=== PATIENT | female | born 1950 | race Caucasian/White ===

== ENCOUNTER → 2024-04-11 | Outpatient (CLI) | payer MEDICARE, OTHER, SELFPAY ==
--- NOTE | 2024-04-11 11:06 | RAD_ITS ---
STUDY: X-RAY - LEFT WRIST REASON FOR EXAM: Female, 73 years old. Pain following a fall. TECHNIQUE: 3 view(s) of the wrist were obtained. COMPARISON: None. FINDINGS: Normal visualized distal radius and ulna. Normal radiocarpal articulation. Normal distal radioulnar articulation. Normal carpal bones. Normal carpal articulations. Normal carpometacarpal articulation of the thumb. Normal second through fifth carpometacarpal articulations. Normal visualized metacarpal bones. The soft tissue structures are unremarkable. RAD/Wrist min 3 Views IMPRESSION: Normal x-ray examination of the wrist. Electronically Signed: José Payne MD at 11:59 EST ,
--- NOTE | 2024-04-11 11:06 | RAD_ITS ---
STUDY: X-RAY - LEFT ELBOW REASON FOR EXAM: Female, 73 years old. Pain following a fall. TECHNIQUE: 4 view(s) of the elbow. COMPARISON: None. FINDINGS: Nondisplaced radial neck fracture. Normal radiocapitellar and ulnotrochlear articulations. Soft tissue swelling. RAD/Elbow min 3 Views IMPRESSION: Nondisplaced radial neck fracture and the soft tissue swelling. Electronically Signed: José Payne MD at 12:02 EST ,
== END | disposition home or self-care (01) ==
LOC: MTRAD 11:05
PROVIDERS: PCP Family Medicine; Referring Provider Physician Assistant; Visit Provider Physician Assistant
DX: M25.532 Pain in left wrist (principal); M25.522 Pain in left elbow; W19.XXXA Unspecified fall, initial encounter
CPT/HCPCS: 73080; 73110

== ENCOUNTER → 2024-05-08 | Outpatient (CLI) | payer MEDICARE, OTHER, SELFPAY ==
[2024-05-08 10:02] LABS: Absolute Lymphocyte Count 1.69 X10^3/uL (0.83-4.51); Absolute Neutrophil Count 2.5 X10^3/uL (2.0-7.7); Basophil# 0.03 X10^3/uL; Basophil% 0.6 % (0-1); Eosinophil# 0.19 X10^3/uL; Eosinophils% 3.9 % (0-5); Hemoglobin 13.2 g/dL (12.0-15.0); Lymphocyte # 1.69 X10^3/ul (0.83-4.51); Lymphocyte % 34.7 % (19-41); Mean Corpuscular Hgb 32.5 pg (27.0-32.0); Mean Corpuscular Volume 98.5 fL (81-99); Mean Platelet Vol. 11.2 fl (6.2-12.0); Monocyte# 0.43 X10^3/uL; Monocyte% 8.8 % (0-10); NRBC Flagged by Analyzer 0 % (0-5); Neutrophil # 2.52 X10^3/uL (2.7-7.7); Neutrophil % 51.8 % (47-70); Platelet Count 230 K/mm3 (150-450); RBC Distribution Width CV 12.8 % (11.6-14.6); RBC Distribution Width SD 46.8 fl (35.1-43.9); Red Blood Count 4.06 M/mm3 (4.2-5.4); White Blood Count 4.9 K/mm3 (4.4-11.0)
[2024-05-08 11:07] LABS: ALB/GLOB Ratio 1.1 RATIO (0.9-2.4); AST(SGOT) 17 U/L (15-37); Alanine Aminotransfer ALT/SGPT 20 U/L (13-56); Albumin, Serum 3.8 g/dL (3.2-5.0); Alkaline Phosphatase 89 U/L (45-117); Anion Gap 5 (5-15); BUN 16 mg/dL (7-18); BUN/Creat Ratio 24.8 RATIO (10-20); Calcium,Total 9.9 mg/dL (8.5-10.1); Chloride 105 mmol/L (98-107); Cholesterol 256 mg/dL (200); Creatinine, Serum 0.64 mg/dL (0.55-1.02); EST Glomerular Filtration Rate 96 mL/min (>60); Est Glom Filt Rate - Afr Amer 116 mL/min (>60); Globulin 3.6 g/dL (2.2-4.2); Glucose 112 mg/dL (74-106); High Density Lipoprotein 107 mg/dL; Potassium 3.8 mmol/L (3.5-5.1); Protein, Total 7.4 g/dL (6.4-8.2); Sodium Level 140 mmol/L (136-145); Triglycerides 115 mg/dL; Very Low Density Lipoprotein 23 mg/dL (5-40)
== END | disposition home or self-care (01) ==
LOC: MFPLAB 08:30
PROVIDERS: PCP Family Medicine; Referring Provider Family Medicine; Visit Provider Family Medicine
DX: K51.90 Ulcerative colitis, unspecified, without complications (principal); E78.5 Hyperlipidemia, unspecified; R53.83 Other fatigue
CPT/HCPCS: 36415; 80053; 80061; 82306; 83735; 84443; 85025

== ENCOUNTER → 2024-05-15 | Outpatient (CLI) | payer MEDICARE, OTHER, SELFPAY ==
[2024-05-15 17:56] LABS: Hemoglobin A1c 5.6 % (3.8-5.6)
== END | disposition home or self-care (01) ==
LOC: MFPLAB 14:33
PROVIDERS: PCP Family Medicine; Referring Provider Family Medicine; Visit Provider Family Medicine
DX: R73.09 Other abnormal glucose (principal)
CPT/HCPCS: 36415; 83036

== ENCOUNTER 2024-05-22 09:00 | Outpatient (RCR) | payer MEDICARE, OTHER, SELFPAY ==
--- NOTE | 2024-05-03 15:21 | HP.PTEVAL_ITS ---
Patient's Visit Information Visit Information Visit Information: GRACE LANG is a 73 year old F referred to Physical Therapy by Dr. Lawrence Brown MD with a diagnosis of L non displaced Dx. Date of Evaluation: 05/03/24 Physical Therapist: QUIRINO Banegas Visit Plan Frequency: 1-2x /Week Duration: 4 Weeks Plan: No strengthening till 6 weeks (05-22-24) Pt was given HEP today (AROM L forearm supination, pronation, elbow flexion and extension) for HEP and will return at her 6 week miya to learn some strengthening exercises. Pt was in instructed to not push ROM into pain and use pain as her guide Subjective Subjective: She fell because her dog pulled her down on 04-09-24. Her Dr is 60# and pulled down on her L side. She could not put pressure on it and it was sore but she did not go for 2 days and then went to Ortho. She wore a sling for awhile. It will be [address] said that her fx is healing well. She has no other restrictions. She still can not push up off the seat or if she supinates, and sleeping with her elbow in flexion up by her shoulder on her stomach. Her R thumb his also bothering her and she will talk to her new PCP zeynep ORTIZ) and because she just moved her 2 months ago. She also has tight in her forearm. Pain L forearm: Pain Intensity (Out of 10): 1 Comment: Can tell its there Objective Objective: R handed R 40# and L 15# R elbow extension 0 and L elbow extension -9 degrees from full extension R elbow flexion 155 and L 142 degrees R wrist supination 98 degrees and L 47 R wrist pronation 95 and L 95 with increase discomfort Strength not tested due to no strengthening restriction until 6 weeks which is 05-22-24 Balance/Special Test Scores Quick DASH Score: 29.5450 Goals Goal 1:: I HEP Goal Time Frame: 6-8 Weeks Goal 2:: Be able to push self up off the bed Goal Time Frame: 6-8 Weeks Goal 3:: Full Wrist and elbow flexion compared to the R (at the time of the eval: R elbow extension 0 and L elbow extension -9 degrees from full extension R elbow flexion 155 and L 142 degrees R wrist supination 98 degrees and L 47 R wrist pronation 95 and L 95 with increase discomfort) Goal Time Frame: 6-8 Weeks Goal 4:: Improve L manager manufacturing strength. At the time of the eval: R 40# and L 15# Goal Time Frame: 6-8 Weeks Rehabilitation Potential Rehabilitation Potential: Good Anticipated Interventions Patient/Client Instruction: Educate patient on: Condition and Plan of Care For the Purpose of:: To decrease pain, To increase ROM, To improve nutrient delivery to tissue, To improve muscle performance and motor function, To improve ability to perform ADL's, To increase tolerance to activity/condition/position, To improve performance and independence with ADL's, To decrease level of supervision to perform tasks, To improve ability of physical actions for home/community/work/leisure, To improve health of tissue, To decrease soft tissue restriction and To increase flexibility/ROM Therapeutic Exercise to Include: Strength training, Postural training, Flexibilty training, Passive ROM, Active ROM and Scapular Strength/Stabilization For the Purpose of:: To decrease pain, To increase ROM, To improve muscle performance and motor function, To improve ability to perform ADL's, To increase tolerance to activity/condition/position, To improve performance and independence with ADL's, To decrease level of supervision to perform tasks, To improve ability of physical actions for home/community/work/leisure, To improve health of tissue, To decrease soft tissue restriction and To increase flexibility/ROM Manual Therapy Techniques to Include: Passive ROM For the Purpose of:: To increase ROM Text: Thank you for the opportunity to evaluate your patient. For Medicare and Medicare HMO plans, please review the plan of care and approve it. It will need to be FAXED BACK to us at [phone] for Medicare purposes. For Medicare only, by signing this I certify the plan of care. Please let me know if there are questions or concerns regarding this plan of care. Physician Signature: Date:
--- NOTE | 2024-05-22 09:27 | HP.PTDCSUM ---
Discharge Summary D/C summary: It has been my pleasure to treat GRACE LANG referred by Dr. Lawrence Brown MD, with the diagnosis of L non displaced Dx for a total of 2 visit(s). Discharge Date: 05/22/24 Please see the following information for a summary of their discharge status. Subjective Subjective: Pt has no pain unless she has to use that arm to push out of a chair. She has pretty much full use. She can feel the elbow sometimes but not too bad. Pain L forearm: Pain Intensity (Out of 10): 1 Overall Improvement % Improvement: 90 Objective Objective/Function: R elbow flexion 155 and L 151 L elbow full extension R wrist supination 98 degrees and L 85 R wrist pronation 95 and L 95 with increase discomfort) R 40# and L 30# Goals Goal 1:: I HEP Goal Progress: Goal Met Goal 2:: Be able to push self up off the bed Goal Progress: Progressing Goal 3:: Full Wrist and elbow flexion compared to the R (at the time of the eval: R elbow extension 0 and L elbow extension -9 degrees from full extension R elbow flexion 155 and L 142 degrees R wrist supination 98 degrees and L 47 R wrist pronation 95 and L 95 with increase discomfort) Goal 4:: Improve L operations vice president strength. At the time of the eval: R 40# and L 15# Plan Plan: No strengthening till 6 weeks (05-22-24) Pt was given HEP today (AROM L forearm supination, pronation, elbow flexion and extension) for HEP and will return at her 6 week miya to learn some strengthening exercises. Pt was in instructed to not push ROM into pain and use pain as her guide D/C Information Discharge Comments: DC PT d/c sentence: If there are questions or concerns regarding this patient's physical therapy, please feel free to call me at [phone]. Thank you for the referral of this patient. Sincerely, Nicole Montanez, MPT Balance/Gait/Functional tests Balance/Special Test Scores Quick DASH Score: 4.5450 Improvement % Improvement: 90
== END 2024-05-22 19:00 | disposition home or self-care (01) ==
LOC: PT 09:00
PROVIDERS: PCP Family Medicine; Referring Provider Orthopaedic Surgery Sports Medicine; Visit Provider Orthopaedic Surgery Sports Medicine
DX: S52.135D Nondisplaced fracture of neck of left radius, subsequent encounter for closed fracture with routine healing (principal)
CPT/HCPCS: 97161; 97530

== ENCOUNTER → 2024-06-06 | Outpatient (CLI) | payer MEDICARE, OTHER, SELFPAY ==
--- NOTE | 2024-06-06 12:33 | CT_ITS ---
STUDY: CT ABDOMEN AND PELVIS WITH CONTRAST REASON FOR EXAM: Female, 73 years old. Ulcerative Colitis, Alfreda, appy, tubal RADIATION DOSAGE (If Supplied By Facility): CTDIvol = ( 9.6 ) mGy, DLP = ( 429.16 ) mGycm TECHNIQUE: Oral and amp; IV Readi-CAT and amp; 100mL Isovue-300 was administered. Transaxial images were obtained from the dome of the diaphragm to the symphysis pubis. Multiplanar coronal and sagittal images were reformatted. The protocol utilizes one or more of the following dose reduction techniques: automated exposure control, adjustment of mA and/or kV according to patient size,and/or use of iterative reconstruction technique. COMPARISON: No relevant prior comparison study available FINDINGS: The visualized lung bases are unremarkable. The visualized portions of the heart are within normal limits. Normal liver. Status post cholecystectomy. Normal spleen. Normal pancreas. Normal bilateral adrenal glands. Right renal cyst appears to be simple, the largest measures about 3.5 cm in the lower pole and for which no further follow-up exam is needed. 2 cm nonobstructing stone in the right kidney extending to the right renal pelvis. Small calcifications in the upper pole of the left kidney. No evidence of hydronephrosis. Normal visualized stomach. Normal in caliber small bowel loops. Reticulosis of the sigmoid colon. No evidence of acute diverticulitis. There is non-visualization of the appendix. There is atherosclerotic calcification of the abdominal aorta with elongation and tortuosity, but without a demonstrated aneurysm. No retroperitoneal adenopathy. Normal urinary bladder. No pelvic mass. Normal abdominal wall. Degenerative changes of the spine. CT/Abdomen/Pelvis WITH Contrast IMPRESSION: 1. Diverticulosis without evidence of acute diverticulitis. 2. Nonobstructing stones in both kidneys larger on the right side without evidence of hydronephrosis. 3. No focal acute inflammatory process. Electronically Signed: Gerson Noel MD at 10:42 EST ,
== END | disposition home or self-care (01) ==
LOC: CT 12:32
PROVIDERS: PCP Family Medicine; Referring Provider Internal Medicine Gastroenterology; Visit Provider Internal Medicine Gastroenterology
DX: K51.90 Ulcerative colitis, unspecified, without complications (principal)
CPT/HCPCS: 74177; Q9967

== ENCOUNTER → 2025-02-08 | Outpatient (CLI) | payer MEDICARE, OTHER, SELFPAY ==
[2025-02-08 17:42] LABS: Hematocrit 37.2 % (37-47); Hemoglobin 12.6 g/dL (12.0-15.0); Immature Granulocytes Count 0.010 X10^3/uL (0.0-0.0); Mean Corp Hgb Conc 33.9 g/dL (32-36); Mean Corpuscular Volume 98.7 fL (81-99); Mean Platelet Vol. 11.1 fl (6.2-12.0); NRBC Flagged by Analyzer 0 % (0-5); Platelet Count 224 K/mm3 (150-450); RBC Distribution Width CV 13.2 % (11.6-14.6); RBC Distribution Width SD 47.6 fl (35.1-43.9); Red Blood Count 3.77 M/mm3 (4.2-5.4); White Blood Count 5.5 K/mm3 (4.4-11.0)
[2025-02-08 18:29] LABS: AST(SGOT) 26 U/L (<=31); Alanine Aminotransfer ALT/SGPT 17 U/L (<=34); Albumin, Serum 4.3 g/dL (3.4-4.8); Alkaline Phosphatase 77 U/L (35-104); Anion Gap 12 (5-15); BUN 14 mg/dL (4-19); BUN/Creat Ratio 23.0 RATIO (10-20); Calcium,Total 10.1 mg/dL (7.6-11.0); Carbon Dioxide 26.0 mmol/L (21.0-32.0); Chloride 101 mmol/L (98-108); Cholesterol 252 mg/dL (<=200); Globulin 2.8 g/dL (2.2-4.2); Glucose 83 mg/dL (70-99); Low Density Lipoprotein Calc. 129 mg/dL; Potassium 4.2 mmol/L (3.3-5.1); Triglycerides 137 mg/dL; Very Low Density Lipoprotein 27 mg/dL (5-40); Vitamin D,25 Hydroxy 56.8 ng/mL (30-100); cholesterol:hdl ratio screen 2.64
== END | disposition home or self-care (01) ==
LOC: MFPLAB 11:45
PROVIDERS: PCP Family Medicine; Visit Provider Family Medicine
DX: G62.9 Polyneuropathy, unspecified (principal); Z13.1 Encounter for screening for diabetes mellitus; E78.5 Hyperlipidemia, unspecified
CPT/HCPCS: 36415; 80053; 80061; 82306; 84443; 85025

== ENCOUNTER → 2025-03-15 | Outpatient (CLI) | payer MEDICARE, OTHER, SELFPAY ==
--- NOTE | 2025-03-15 10:00 | BD_ITS ---
PROCEDURE: DEXA BONE DENSITY STUDY 03/15/2025 REASON FOR EXAM: HISTORY OF OSTEOPOROSIS F, age 74 y/o . Postmenopausal. TECHNIQUE: Procedure Code: BDDBD Modality: DX Procedure: DEXA BONE DENSITY STUDY COMPARISON: None FINDINGS: BMD and T-SCORES Lumbar spine: 0.874 g/cm2, T-score -1.6 Levels: L1 through L4 Left femoral neck: 0.714 g/cm2, T-score -1.2 Femoral neck comparison data not recommended for monitoring change. Left total hip: 0.823 g/cm2, T-score -1.0 Right femoral neck: 0.669 g/cm2, T-score -1.6 Femoral neck comparison data not recommended for monitoring change. Right total hip: 0.815 g/cm2, T-score -1.0 The World Health Organization has defined the following categories based on bone density: Normal bone density: T-score equal to or greater than -1.0 Osteopenia: T-score between -1.0 and -2.5 Osteoporosis: T-score equal to or less than -2.5 FRAX (or Comparable) Fracture Risk Assessment: 10 Year Probability of Fracture: Major Osteoporotic Fracture: 50% Hip Fracture: 3.3% (Note: FRAX is not to be reported in setting of normal range bone density, osteoporosis on DEXA, known history of osteoporosis, prior osteoporotic hip or vertebral fracture, or for any patient undergoing pharmacological treatment for bone loss.) The National Osteoporosis Foundation (NOF) recommends pharmacological treatment for patients with a FRAX 10-year risk of 3% or higher for a hip fracture, or 20% or higher for a major osteoporotic fracture, to prevent osteoporosis and reduce fracture risk. The patient does meet the pharmacological treatment recommendations for prevention of osteoporosis. BD/Dexa Bone Density Study IMPRESSION: OSTEOPENIA. Recommend follow-up as clinically warranted. Reading Location: [facility]
--- NOTE | 2025-03-15 10:45 | BI_ITS ---
EXAM: SCRN MAMM (CAD)W/EDMAR BILAT DATE: 03/15/2025 CLINICAL HISTORY: F, Age 74 y/o , BREAST CANCER SCREENING Sister with breast cancer. TECHNIQUE: Procedure Code: [id number] Modality: MG Procedure: SCRN MAMM (CAD)W/EDMAR BILAT COMPARISON: Prior study not available for comparison at this time. FINDINGS: TISSUE DENSITY: The breasts are heterogeneously dense, which may obscure small masses. Bilateral Breast Mammographic Findings: No significant masses, calcifications or other abnormalities are identified. BI/SCRN MAMM (CAD)W/EDMAR BILAT IMPRESSION: Unremarkable bilateral screening mammogram. OVERALL FINAL ASSESSMENT BI-RADS 1: NEGATIVE. RECOMMENDATION: Routine annual follow-up in 1 Year Additional Recommendation none A letter with findings and recommendations will be mailed to the patient. Reading Location: [place] [id number]
== END | disposition home or self-care (01) ==
LOC: OPBI 09:34
PROVIDERS: PCP Family Medicine; Referring Provider Obstetrics & Gynecology; Visit Provider Obstetrics & Gynecology
DX: Z12.31 Encounter for screening mammogram for malignant neoplasm of breast (principal); M81.0 Age-related osteoporosis without current pathological fracture
CPT/HCPCS: 77063; 77067; 77080

== ENCOUNTER → 2025-03-28 | Outpatient (CLI) | payer MEDICARE, OTHER, SELFPAY ==
[2025-03-28 16:15] LABS: CRP < 3.00 mg/L (0.0-3.0)
== END | disposition home or self-care (01) ==
LOC: LAB 15:32
PROVIDERS: PCP Family Medicine; Referring Provider Internal Medicine Gastroenterology; Visit Provider Internal Medicine Gastroenterology
DX: K51.90 Ulcerative colitis, unspecified, without complications (principal)
CPT/HCPCS: 36415; 85652; 86140